=== PATIENT | male | born 1980 | race Caucasian/White ===

== ENCOUNTER 2016-12-01 01:41 | Emergency (ER) | payer MEDICARE ==
[~2016-12-01] VITALS: Ht 182.9 cm; Wt 74.8 kg
[2016-12-01] MEDS ORDERED: RISPERDAL1 MG PO (02:03)
== END 2016-12-01 02:24 | disposition short-term general hospital (02) ==
LOC: ER 01:41
DX: Z00.01 Encounter for general adult medical examination with abnormal findings (principal)